=== PATIENT | female | born 1960 | race Caucasian/White ===

== ENCOUNTER → 2020-06-26 | Outpatient (CLI) | payer BC ==
[~2020-06-26] MED LIST: DISP SYRIN IV ONE; IBANDRONATE SODIUM IV ONE
--- NOTE | 2020-06-26 16:00 | NUR ---
PATIENT AMBULATED TO ROOM ICU 1. VITALS SIGNS OBTAINED. PERIPHERAL IV INSERTED INTO LEFT AC FLUSHED WITH 10ML NS ALONG WITH GOOD BLOOD RETURN. BONIVA WAS ADMINISTERED VIA IV PUSH OVER 1 MINUTE. IV FLUSHED WITH 10ML NS. IV REMOVED. PATIENT TOLERATED MED ADMINISTRATION WELL. PATIENT LEFT THE UNIT VIA AMBULATION.
[2020-06-26 16:10] VITALS: BP 124/68
== END | disposition home or self-care (01) ==
LOC: OPINF 15:17
PROVIDERS: ATTEND Internal Medicine
DX: M85.89 Other specified disorders of bone density and structure, multiple sites (principal)
CPT/HCPCS: 96374; J1740

== ENCOUNTER → 2020-10-16 | Outpatient (CLI) | payer BC ==
[2020-10-16 13:40] VITALS: BP 128/78
== END | disposition home or self-care (01) ==
LOC: OPINF 13:16
PROVIDERS: ATTEND Internal Medicine
DX: M85.80 Other specified disorders of bone density and structure, unspecified site (principal)
CPT/HCPCS: 96374; J1740

== ENCOUNTER → 2021-12-08 | Outpatient (CLI) | payer BC ==
[2020-10-16 13:40] VITALS: BP 128/78
--- NOTE | 2021-12-08 11:03 | RAD ---
INDICATION: 61 years of age asymptomatic female patient presents for screening mammography. No person al or family history of breast cancer. TECHNIQUE: Full field craniocaudal and mediolateral oblique images of both breasts were obtained usi ng digital technique with tomosynthesis and also analyzed with computer-aided detection software. COMPARISON: Prior mammographic imaging dating back to 02/08/2013. BREAST COMPOSITION: Category C: The breast tissue is heterogeneously dense, which could obscure detec tion of small masses. FINDINGS: Right breast: Partially obscured isodense mass at the 12:00 position, 2 cm deep to the nipple. There is a additional asymmetry versus partially obscured mass appreciated on the MLO projection along the posterior nipple line approximately 4.5 cm deep to the nipple. There are additional circumscribed ma sses predominantly in the upper outer quadrant, anterior posterior depth that appear similar dating b ack to 2012, consistent with a benign etiology. Left breast: Redemonstrated numerous partially obscured circumscribed masses in the upper outer quadr ant, anterior-posterior depth that demonstrate a similar/size decreased appearance dating back to 201 3.No new suspicious dominant masses. No suspicious microcalcifications or architectural distortion. The visualized axillae are unremarkable. IMPRESSION: 1. Partially obscured isodense right breast mass the 12:00 position, 2 cm deep to the nipple in the r ight breast. Additional asymmetry versus partial obscured mass appreciated on the MLO projection ruth ann g the posterior nipple line, middle depth. Further evaluation with diagnostic 3-D spot compression an d followed with targeted right breast ultrasound is recommended. 2. No mammographic evidence of malignancy in the left breast. RECOMMENDATION: The patient will be contacted to return for additional imaging and a supplemental rep ort will follow. BIRADS 0: INCOMPLETE - NEED ADDITIONAL IMAGING EVALUATION AND/OR PRIOR MAMMOGRAMS FOR COMPARISON. This study was interpreted with the benefit of Computerized Aided Detection (CAD). ?Your patient's mammogram demonstrates that she has dense breast tissue (breast density category C or D), which could hide abnormalities, and if she has other risk factors for breast cancer that have be en identified, she might benefit from supplemental screening tests that may be suggested by you as he r ordering physician. Dense breast tissue, in and of itself, is a relatively common condition. Theref ore, this information is not provided to cause undue concern, but rather to raise your awareness and to promote discussion with your patient regarding the presence of other risk factors, in addition to dense breast tissue. Your patient's mammography results will be sent to her. Patient information is entered into the reminder system with a target due date for the next screening mammogram. Mammography is the most sensitive method for finding small breast cancers, but it does not detect the m all and is not a substitute for careful clinical examination. A negative mammogram does not negate a clinically suspicious finding and should not result in delay in biopsying a clinically suspicious a bnormality. "Our facility is accredited by the [employer] Mammography Program." Electronically signed by: Cb Ceja DO (12/08/2021 11:00 AM) [id number]
== END ==
LOC: MAMMO 08:37
PROVIDERS: ATTEND Internal Medicine
DX: Z12.31 Encounter for screening mammogram for malignant neoplasm of breast (principal)
CPT/HCPCS: 77063; 77067

== ENCOUNTER → 2022-01-24 | Outpatient (CLI) | payer BC ==
[2020-10-16 13:40] VITALS: BP 128/78
--- NOTE | 2022-01-24 14:49 | RAD ---
DATE: 01/24/2022 EXAM: US BREAST RT, MG DIAGNOSTICUNILAT MAMMO HISTORY: Recalled from screening mammogram for partially circumscribed mass in the right breast. COMPARISON: 12/08/2021 This study was interpreted with the benefit of Computerized Aided Detection (CAD). Breast Density: SCATTERED The breast parenchyma shows scattered fibroglandular densities. Breast pare nchyma level B. FINDINGS: The 5 mm partially obscured mass at 12:00 anterior depth persists on spot compression. The possible circumscribed nodule at 3.5 cm from the nipple on MLO view does not persist. Ultrasound of the right breast at 12:00 2 cm from the nipple demonstrates a 6 x 5 x 4 mm macrolobulat ed hypoechoic mass with posterior acoustic enhancement, parallel in orientation. No internal blood fl ow. This is likely a complicated cyst and corresponds with the mammographic abnormality at 12:00 ante rior depth. There are several additional smaller similar-appearing areas in this region. No right axi llary lymphadenopathy. IMPRESSION: Probably benign hypoechoic mass at 12:00 2 cm the nipple, likely a complicated cyst. Jamari mmend follow-up ultrasound in 6 months to ensure stability. BI-RADS CATEGORY: 3 PROBABLY BENIGN FINDING(S)-SHORT INTERVAL FOLLOW-UP SUGGESTED RECOMMENDED FOLLOW-UP: Follow-up ultrasound of the right breast in 6 months. PQRS compliance statement: Patient information was entered into a reminder system with a target due d ate for the next mammogram. Mammography is a sensitive method for finding small breast cancers, but it does not detect them all a nd is not a substitute for careful clinical examination. A negative mammogram does not negate a clin ically suspicious finding and should not result in delay in biopsying a clinically suspicious abnorma lity. "Our facility is accredited by the [employer] Mammography Program." Electronically signed by: Jayda Benson MD (01/24/2022 2:46 PM) [facility]
== END ==
LOC: MAMMO 12:58
PROVIDERS: ATTEND Internal Medicine
DX: R92.8 Other abnormal and inconclusive findings on diagnostic imaging of breast (principal)
CPT/HCPCS: 76641; 77065